=== PATIENT | female | born 1995 | race African-American/Black ===

== ENCOUNTER 2016-07-14 22:04 | Emergency (ER) | payer OTHER ==
[~2016-07-14] VITALS: Ht 172.7 cm; Wt 116.1 kg
[2016-07-15 01:26] LABS: ADD MIUA? YES; BILIRUBIN NEGATIVE; BLOOD NEGATIVE; COLOR YELLOW ((YELLOW)); GLUCOSE (STRIP) NEGATIVE; KETONES NEGATIVE; LEUKOCYTES SMALL; NITRITE NEGATIVE; PROTEIN (STRIP) NEGATIVE; SPECIFIC GRAVITY 1.026 (1.000-1.030); UROBILINOGEN 0.2 MG/DL (0.2-1.0)
[2016-07-15 01:36] LABS: BACTERIA RARE /HPF; EPITHELIAL CELLS RARE /HPF; MUCUS TRACE /LPF; WHITE BLOOD CELLS 0-5 /HPF (0-5)
[2016-07-15] MEDS ORDERED: REGLAN10 MG PO (01:42)
[2016-07-15] MEDS ORDERED: IMITREX100 MG PO (01:42)
[2016-07-15] MEDS ORDERED: NAPROSYN500 MG PO (01:42)
[2016-07-15 02:21] VITALS: BP 134/91
== END 2016-07-15 02:22 | disposition home or self-care (01) ==
LOC: EME 22:04 → EXP 22:04
PROVIDERS: Physician Assistant
DX: G43.909 Migraine, unspecified, not intractable, without status migrainosus (principal)
CPT/HCPCS: 81003; 99281; 99283; J1885